=== PATIENT | female | born 1985 | race African-American/Black ===

== ENCOUNTER 2016-07-27 20:59 | Emergency (ER) | payer OTHER | END 2016-07-27 22:32 | disposition home or self-care (01) | LOC: CED 20:59 | DX: J45.901 Unspecified asthma with (acute) exacerbation (principal); J06.9 Acute upper respiratory infection, unspecified; E10.9 Type 1 diabetes mellitus without complications; F17.210 Nicotine dependence, cigarettes, uncomplicated | CPT/HCPCS: 94640; 99283 ==